=== PATIENT | female | born 1975 ===

== ENCOUNTER 2024-07-11 15:56 | Emergency (ER) | payer OTHER ==
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
== END 2024-07-11 20:24 | disposition home or self-care (01) ==
LOC: EC 15:56
DX: M79.604 Pain in right leg (principal)
CPT/HCPCS: 71046